=== PATIENT | female | born 1985 | race Caucasian/White ===

== ENCOUNTER 2025-04-20 19:59 | Emergency (ER) | payer OTHER ==
[~2025-04-20] VITALS: Ht 162.6 cm; Wt 54.4 kg
[2025-04-20 20:35] VITALS: BP 111/76; O2SAT 100
== END 2025-04-20 22:29 | disposition home or self-care (01) ==
LOC: ER 19:59
DX: T63.691A Toxic effect of contact with other venomous marine animals, accidental (unintentional), initial encounter (principal); Y92.832 Beach as the place of occurrence of the external cause